=== PATIENT | female | born 2000 ===

== ENCOUNTER 2021-04-28 20:21 | Emergency (ER) | payer OTHER ==
[~2021-04-28] VITALS: Ht 162.6 cm; Wt 59.0 kg
[2021-04-28 20:33] VITALS: BP 112/62
== END 2021-04-28 22:23 | disposition left against medical advice (07) ==
LOC: EMS 20:23
DX: M54.50 Low back pain, unspecified (principal); Z53.21 Procedure and treatment not carried out due to patient leaving prior to being seen by health care provider